=== PATIENT | female | born 1950 | race Caucasian/White ===

== ENCOUNTER → 2017-10-29 | Outpatient (CLI) | payer MEDICARE, OTHER ==
[~2017-10-29] MED LIST: ASP81CT PO; ATEN50TA PO; LEVO750T6 PO; LRT10T PO; METR500T PO
--- NOTE | 2017-10-29 18:58 | Diagnostic Imaging Report ---
INDICATION: Back pain with radiation to right lower extremity. AP and lateral views of lumbar spine are obtained. FINDINGS: The lumbar vertebrae are normal in height and alignment. There is no fracture. There is slight anterolisthesis of L5 on S1. There is facet degenerative change at L4-L5 and L5-S1. There is osteophyte formation at T12-L1 and to lesser extent at L1-L2. There is mild disc space narrowing at L3-L4. IMPRESSION: Multilevel degenerative changes in the lumbar spine as described above. No definite acute finding. Consider MRI to evaluate for disc pathology as clinically warranted. Dictated by: Dictated on workstation # [id number]
== END ==
LOC: RAD 18:22
PROVIDERS: ATTEND Nurse Practitioner Family
DX: M47.26 Other spondylosis with radiculopathy, lumbar region (principal)
CPT/HCPCS: 72100

== ENCOUNTER → 2022-05-13 | Outpatient (CLI) | payer MEDICARE, OTHER ==
--- NOTE | 2022-05-13 17:06 | Diagnostic Imaging Report ---
INDICATION: Back injury from a fall. FINDINGS: AP and lateral views of the thoracic spine show mild kyphosis. There is some spondylosis with disc space narrowing and anterior osteophyte formation at multiple levels. There are no appreciable compression fractures. IMPRESSION: Degenerative changes of the thoracic spine. No acute abnormality is seen. Dictated by: Dictated on workstation # [id number]
--- NOTE | 2022-05-13 17:08 | Diagnostic Imaging Report ---
INDICATION: Left rib pain. TECHNIQUE: A PA chest and three views of the left ribs were obtained. FINDINGS: There is a loop recorder on the left side of the chest. There are no effusions or pneumothoraces. IMPRESSION: No displaced rib fracture is seen. Loop recorder on the left sided chest. There are no displaced rib fractures seen. Dictated by: Dictated on workstation # [id number]
== END ==
LOC: LAB 15:25
PROVIDERS: ATTEND Chiropractor
DX: M47.814 Spondylosis without myelopathy or radiculopathy, thoracic region (principal); Z95.818 Presence of other cardiac implants and grafts
CPT/HCPCS: 71110; 72072

== ENCOUNTER 2023-04-28 14:57 | Emergency (ER) | payer MEDICARE ==
--- NOTE | 2023-04-28 15:16 | ED Fall/Injury ---
General Chief Complaint: Trauma-Non Activation Stated Complaint: HEAD INJ | FALL THIS AM Nursing Triage Note: SEE TRIAGE Source: patient Exam Limitations: no limitations History of Present Illness Date Seen by Provider: Apr 28, 2023 Time Seen by Provider: 15:04 Initial Comments This 73-year-old woman presents to the emergency room with complaints of fall this morning causing a scalp contusion. She tripped over a chair leg at work and struck her head on the floor. There was no loss of consciousness. She denies any concussion symptoms at present. She denies any prodrome such as lightheadedness, dizziness, chest pain, or shortness of breath. 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 She currently rates her pain as 3/10. She feels rather sleepy but otherwise is at baseline. She is alert and oriented on exam. She presented to the emergency room because her daughter encouraged her to be evaluated. The incident occurred at 1115 approximately. She denies any other injuries. Allergies and Home Medications Allergies Coded Allergies: No Known Drug Allergies (Unverified , 05/12/12) Patient Home Medication List Home Medication List Reviewed: Yes Aspirin (Aspirin 81 Mg Chew Tab) 81 Mg Chew, 81 MG PO DAILY, (Reported) Entered as Reported by: KIMMY SO on 07/17/12 1249 Atenolol (Tenormin 50 Mg) 50 Mg Tablet, 1 EACH PO DAILY, (Reported) Entered as Reported by: KIMMY SO on 07/17/12 1249 Loratadine (Claritin) 10 Mg Box, 1 EACH PO DAILY, (Reported) Entered as Reported by: KIMMY SO on 07/17/12 1249 Review of Systems Review of Systems Constitutional: no symptoms reported Eyes: No Symptoms Reported Ears, Nose, Mouth, Throat: see HPI Respiratory: no symptoms reported Cardiovascular: no symptoms reported Gastrointestinal: no symptoms reported Genitourinary: no symptoms reported : No Musculoskeletal: see HPI Skin: see HPI Psychiatric/Neurological: See HPI Past Zduoslj-Tiroac-Leepaa Hx Patient Social History Tobacco Use?: No Substance use?: No Alcohol Use?: Yes Alcohol Frequency: Rarely Pt feels they are or have been: No Past Medical History Surgery/Hospitalization HX: HTN, LOOP RECORDER Surgeries: Yes Breast (lumpectomy), Cardiac (loop recoreder) Respiratory: Yes Sleep Apnea Cardiac: Yes Hypertension Neurological: No Genitourinary: No Gastrointestinal: No Musculoskeletal: Yes Chronic Back Pain Endocrine: No HEENT: No Cancer: Yes Breast Did You Recieve Any Treatments: Yes What Type of Treatment Did You: Chemotherapy, Radiation, Surgical Intervention Psychosocial: No Integumentary: No Physical Exam Vital Signs Vital Signs - First Documented 04/28/23 15:04 Pulse 65 Resp 18 B/P (MAP) 156/81 (106) Pulse Ox 97 O2 Delivery Room Air Capillary Refill : Less Than 3 Seconds Height, Weight, BMI Height: '" Weight: lbs. oz. 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 No intracranial abnormalities or skull fractures were appreciated. There was soft tissue edema noted at the site of contusion. Radiologist's report was also reviewed. It indicated no serious injuries. Patient had no progression of symptoms. See discharge instructions for further discussion. Diagnostic Imaging Diagonstic Imaging: CT Plain Films/CT/US/NM/MRI: head Comments NAME: MYLENE MENA [facility] REC#: [id number] PT STATUS: REG ER : 1950 PHYSICIAN: TOBIAS FRAIRE MD ADMIT DATE: 04/28/23/ER Draft Date of Exam:04/28/23 CT HEAD WO INDICATION: Fall with injury to head, scalp contusion. TECHNIQUE: Multiple contiguous axial images were obtained through the brain without the use of intravenous contrast. Auto Exposure Controls were utilized during the CT exam to meet ALARA standards for radiation dose reduction. COMPARISON: There is no previous study for comparison. FINDINGS: There are no extra-axial fluid collections. No intracranial hemorrhage. No intracranial mass or mass effect. No midline shift. The ventricles are normal in size and position. There are patchy low-density changes in the deep white matter, compatible with chronic ischemic change. There is no acute intracranial process. Calvarial windows show no fracture. There is left posterior scalp swelling. IMPRESSION: Chronic changes in the deep white matter. No acute hemorrhage, mass effect, or acute intracranial finding. Dictated on workstation # [id number] Dict: 04/28/23 1529 Trans: 04/28/23 1540 [id number] Interpreted by: LUCÍA STALLWORTH MD Departure Impression Primary Impression: Scalp contusion Qualified Codes: S00.03XA - Contusion of scalp, initial encounter Additional Impression: Fall on same level from tripping Disposition: 01 HOME, SELF-CARE Condition: Improved Departure-Patient Inst. Referrals: NO,LOCAL PHYSICIAN (PCP/Family) Primary Care Physician Patient Instructions: Contusion (DC), Minor Head Injury (DC) Add. Discharge Instructions: You may take Tylenol (acetaminophen) up to 1000 mg every 6 hours as needed for pain. You may use ibuprofen up to 400 mg every 6 hours as needed sparingly for pain not controlled by Tylenol. You may also ice in 20-minute intervals to reduce pain and swelling. The CT scan of your head was unremarkable. Return to the ER if you have worsening symptoms despite following these instructions. You should rest for the remainder of the evening and not engage in any physically or mentally strenuous activities. All discharge instructions reviewed with patient and/or family. Voiced understanding. TOBIAS FRAIRE MD Apr 28, 2023 15:16
--- NOTE | 2023-04-28 15:40 | Diagnostic Imaging Report ---
INDICATION: Fall with injury to head, scalp contusion. TECHNIQUE: Multiple contiguous axial images were obtained through the brain without the use of intravenous contrast. Auto Exposure Controls were utilized during the CT exam to meet ALARA standards for radiation dose reduction. COMPARISON: There is no previous study for comparison. FINDINGS: There are no extra-axial fluid collections. No intracranial hemorrhage. No intracranial mass or mass effect. No midline shift. The ventricles are normal in size and position. There are patchy low-density changes in the deep white matter, compatible with chronic ischemic change. There is no acute intracranial process. Calvarial windows show no fracture. There is left posterior scalp swelling. IMPRESSION: Chronic changes in the deep white matter. No acute hemorrhage, mass effect, or acute intracranial finding. Dictated by: Dictated on workstation # [id number]
[2023-04-28 16:09] VITALS: BP 155/98
== END 2023-04-28 16:09 | disposition home or self-care (01) ==
LOC: EDUNIT# 14:57 → ER 15:01
DX: S00.03XA Contusion of scalp, initial encounter (principal); W01.0XXA Fall on same level from slipping, tripping and stumbling without subsequent striking against object, initial encounter
CPT/HCPCS: 70450